=== PATIENT | male | born 1995 | race Caucasian/White ===

== ENCOUNTER 2019-01-16 00:12 | Emergency (ER) | payer BC, SELFPAY ==
[2019-01-16 00:14] VITALS: BP 129/95; PULSE 141; RESP 26; TEMP 37.1; O2SAT 98; BMI 23.6
--- NOTE | 2019-01-16 00:27 | ED.VIS.GEN ---
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 EMS was called due to his level of intoxication. They cannot get a history due to his intoxication and fighting with them. He cannot tell them what he took. He is just agitated aggressive and yelling. They do not have a past medical history on him. Unable to get a history due to the patient's mental status. Brought in by EMS and placed in restraints due to his physical aggression. Past Medical History - Allergies and Home Meds Allergies/Adverse Reactions: Allergies No Known Allergies Allergy (Verified 01/16/19 00:25) Primary Care Physician: Mariah Ann,Out of [Primary Care Provider] - Prior records reviewed: Yes Past Medical History: - - Unable to obtain Surgical History: - - Unable to obtain Smoking Status: Unknown if ever smoked Alcohol: Occasional Review of Systems ROS: Unable to Obtain Physical Exam Vital Signs/Narrative: Vital Signs Temp Pulse Resp BP Pulse Ox 01/16/19 00:14 98.7 F 141 H 26 H 129/95 H 98 General: Well nourished, Well developed, - - Thrashing about the bed fighting and screaming.. Negative for: No Acute Distress Head: Normocephalic, Atraumatic Eyes: Perrl, EOMI ENT: Moist mucous membranes, No rhinorrhea Neck: Supple, Nontender Cardiovascular: Regular rhythm, No murmurs, Tachycardia Respiratory: No distress, CTA bilaterally, Chest nontender Abdomen: Soft, Nontender, Nondistended, Normal bowel sounds Back: Nontender, Normal Inspection Extremities: Nontender, No edema Skin: Normal color, No rash Neurological: Alert, Oriented x3, Cranial nerves II-XII grossly intact, Normal Strength, Normal Sensation Psychological: Agitated. Negative for: Normal affect, Normal Mood Diagnostic/Tx/Re-eval - Medical Decision Making Patient placed in restraints. Given Haldol Ativan and Benadryl IV. This is due to his agitated and fighting. Given IV fluids. Lab work obtained. Lab work shows alcohol 323. Tox negative. Slight leukocytosis noted likely secondary to his aggressive nature. Patient fell asleep and will be monitored overnight and discharged upon sobriety. ED Disposition - Plan for ED Patient: Diagnosis: Alcohol overdose Instructions: ED Overdose Alcohol Prescriptions: Ondansetron [Zofran Odt] 4 mg PO Q8H PRN PRN #10 tab PRN Reason: Nausea Referrals: Sky Collier MD [STAFF PHYSICIAN] -
--- NOTE | 2019-01-16 00:30 | ED.RN ---
AT 0012 THIS PT WAS PLACED IN RESTRAINTS. PT ARRIVED VIA EMS TO ED, PT WAS YELLING, AND THRASHING AROUND ON EMS COT, PT WAS ALSO SPITTING ON EMS PERSONAL AND ER STAFF, HRO OFFICER PLACED A SPIT MASK ON THE PT, THE PT WAS PLACED ON THE ER COT WHERE HE CONTINUED TO THRASH AND YELL AT STAFF MEMBERS. PT STATED FUCK OFF AND SUCK MY DEBBIE WHENEVER STAFF TRIED TO ASK HIM QUESTIONS ABOUT HIS HEALTH. PT WAS KICKING AND HITTING AND CONTINUED TO SPIT AND TRY TO BITE THROUGH THE MASK. MULTIPLE ATTEMPTS WERE MADE BY STAFF MEMBERS TO DE ESCALATE THE PT, PT JUST CONTINUED TO YELL AND TRY TO HIT AND KICK STAFF, RESTRAINTS WERE PLACED AT THIS TIME
[2019-01-16] MEDS: DiphenhydrAMINE 50 MG/ML Syringe IV (00:36)
[2019-01-16] MEDS: LORazepam 2 MG/ML Syringe IV (00:36)
[2019-01-16] MEDS: 0.9% Normal Saline 1,000 ML 1000 ML IV (00:36)
[2019-01-16] MEDS: Haloperidol Lactate 5 MG/ML Vial IV (00:36)
[2019-01-16 00:37] LABS: Absolute Lymphocyte Count 4.29 X10^3/ul (0.83-4.51); Absolute Neutrophil Count 7.7 X10^3/uL (2.0-7.7); Basophil# 0.04 X10^3/uL; Basophil% 0.3 % (0-1); Eosinophil# 0.18 X10^3/uL; Eosinophils% 1.4 % (0-5); Hematocrit 44.5 % (40-54); Lymphocyte # 4.29 X10^3/ul (4.0); Lymphocyte % 33.5 % (19-41); Mean Corp Hgb Conc 33.7 g/gl (32-36); Mean Corpuscular Hgb 29.7 pg (27.0-32.0); Mean Corpuscular Volume 88.1 fL (80-94); Mean Platelet Vol. 10.2 fl (6.2-12.0); Monocyte# 0.59 X10^3/uL; Monocyte% 4.6 % (0-10); Neutrophil # 7.67 X10^3/uL (2.7-7.7); Platelet Count 410 K/mm3 (150-450); RBC Distribution Width CV 12.7 % (11.6-14.6); RBC Distribution Width SD 40.2 fl (35.1-43.9); Red Blood Count 5.05 M/mm3 (4.6-6.2); White Blood Count 12.8 K/mm3 (4.4-11.0)
[2019-01-16 00:38] LABS: POSITIVE COUNT NO; POSITIVE DIFFERENTIAL NO; POSITIVE MORPHOLOGY NO
--- NOTE | 2019-01-16 00:45 | ED.RN ---
PT ARRIVES VIA EMS FROM [facility]H [facility]. WHEN HE ARRIVED HE WAS TRASH ON EMS COT. HE SPIT ON ONE OF THE EMS PROVIDERS. SPIT MASK WAS PLACED BY HRO. PT WAS ASSISTED OVER INTO THE BED. PT WAS PLACED INTO [employer] RESTRAINTS TO PROTECT HIMSELF AND [facility] STAFF. STAFF WAS SUFFICIENT TO RESTRAIN PT WITHOUT INJURY TO PATIENT AND STAFF. EVEN AFTER RESTRAINTS WERE APPLIED PT CONTINUED TO TRASH AND BITE THROUGH HIS SPIT MASK ONTO RAIL SAFETY PADS. Trudi BEARDEN RN [id number]
[2019-01-16 00:46] LABS: Amphetamine Urine VISTA NEGATIVE (<1000 ng/mL); Anion Gap 13 (5-15); BUN 19 mg/dL (7-18); Barbiturate Urine VISTA NEGATIVE (< 200 ng/mL); Benzodiazepine Urine VISTA NEGATIVE (< 200 ng/mL); Calcium,Total 8.6 mg/dL (8.5-10.1); Chloride 107 mmol/L (98-107); Cocaine Urine VISTA NEGATIVE (< 300 ng/mL); Creatinine, Serum 1.12 mg/dL (0.70-1.30); EST Glomerular Filtration Rate 87 mL/min (>60); Ecstacy Urine VISTA NEGATIVE (< 500 ng/mL); Est Glom Filt Rate - Afr Amer 105 mL/min (>60); Estimated Creatinine Clearance 106.82 ml/min; Glucose 118 mg/dL (74-106); Methadone Urine VISTA NEGATIVE (< 300 ng/mL); PCP Urine VISTA NEGATIVE (< 25 ng/mL); Potassium 3.4 mmol/L (3.5-5.1); Sodium Level 140 mmol/L (136-145); THC Urine VISTA NEGATIVE (< 50 ng/mL); Vista UDS pH Range 6
[2019-01-16 02:27] VITALS: BP 91/43; PULSE 67; RESP 18; O2SAT 97
[2019-01-16] MEDS: 0.9% Normal Saline 1,000 ML 999 ML IV (02:30)
--- NOTE | 2019-01-16 03:15 | ED.RN ---
AT THIS TIME DUE TO PTS COOPERATION RESTRAINTS WERE REMOVED. PT IS RESTING COMFORTABLY AT THIS TIME AND WILL CONTINUE TO BE MONITORED
[2019-01-16 04:15] VITALS: BP 97/44; PULSE 67; RESP 14; O2SAT 99
[2019-01-16 05:42] VITALS: BP 90/44; PULSE 58; RESP 14; O2SAT 99
[2019-01-16 08:38] VITALS: BP 91/51; PULSE 58; RESP 17; O2SAT 99
[2019-01-16 10:00] VITALS: BP 91/51; PULSE 94; RESP 22; O2SAT 100
== END 2019-01-16 10:18 | disposition home or self-care (01) ==
PROVIDERS: Emergency Provider Emergency Medicine
DX: T51.0X1A Toxic effect of ethanol, accidental (unintentional), initial encounter (principal)
CPT/HCPCS: 80048; 80307; 80320; 85025; 96361; 96374; 96375; 99285; J7030; A4216; G0480